=== PATIENT | male | born 1985 | race Caucasian/White ===

== ENCOUNTER 2021-12-05 21:52 | Emergency (ER) | payer OTHER, SELFPAY ==
[2021-12-05 21:53] VITALS: BP 145/90; PULSE 103; RESP 18; TEMP 38.1; O2SAT 99; BMI 39.5
--- NOTE | 2021-12-05 22:16 | EDS_ITS ---
HPI History of Present Illness Chief Complaint: Abscess Informant: patient and spouse/S.O. Narrative Narrative: Abscess under right armpit started Saturday 3 days ago. Seen at [facility] yesterday reported attempted I&D states packing was placed over there is no drainage. He was started on cefuroxime twice a day for 7 days. 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 States redness is slightly improved however swelling seems to increase. Fever in the ED. Denies cough or urinary symptoms. Denies history of diabetes. Prior similar symptoms: No PFSH PFSH Allergy/AdvReac Type Severity Reaction Status Date / Time No Known Allergies Allergy Verified 12/05/21 21:57 Social History Smoking Status: Never smoker ROS ROS ED Constitutional Constitutional ED: Denies chills, fever(s) or sweats Eyes Eyes: Denies change in vision ENT ENT ED: Denies dysphagia or sore throat Cardiovascular Cardiovascular: Denies chest pain, leg edema, palpitations or racing heartbeat Respiratory/Chest Respiratory/Chest: Denies cough, dyspnea or dyspnea on exertion Gastrointestinal Gastrointestinal: Denies abdominal pain, diarrhea, nausea or vomiting Genitourinary Genitourinary ED: Denies dysuria, hematuria or urinary frequency Musculoskeletal Musculoskeletal: Denies back pain, extremity pain or neck pain Integumentary Reports abscess; Denies rash or wounds Neurologic Neurologic: Denies headache(s), paresthesias or weakness EXAM Physical Exam Const Vital Signs: 12/05/21 21:53 Temperature 100.6 F H Temperature Source Oral Pulse Rate 103 H Respiratory Rate 18 Blood Pressure 145/90 H Blood Pressure Mean 108 Pulse Ox 99 Oxygen Delivery Method Room Air Positive well nourished and well developed General Appearance ED: well developed and NAD HEENT Reports moist mucous membranes normocephalic and atraumatic Eyes PERRL, EOMs intact bilaterally and conjunctivae normal General Eye ED: Yes normal appearance of both eyes Neck no lymphadenopathy and supple General: Negative for tenderness Chest Wall Chest: Negative for tenderness Resp normal respiratory effort and normal air movement Effort and Inspection: symmetric chest movement; Negative for respiratory distress Cardio regular rate, regular rhythm and no murmurs Peripheral Pulses: pulses 2+ throughout GI normal to inspection, nondistended, normoactive bowel sounds and non-tender Palpation: Negative for guarding or rebound tenderness present Back/Spine no CVA tenderness and no thoracic nor lumbar tenderness Extremity normal to inspection General Extremety ED: Negative for edema or tenderness General Extremity: Negative for edema Neuro oriented x3 and no sensory deficits noted Sensorium / Orientation: awake and alert Skin Skin Narrative: Right axillary: 10 x 6 cm area of induration and erythema extending 12 cm. Quarter-inch packing was noted medial superior aspect of the wound. No active drainage. MDM MDM MDM Narrative Medical decision making narrative: Patient low-grade fever in the ED. He is nontoxic. Bedside ultrasound noted cobblestoning over the indurated area. There was 1 small circular collection superior to the wound where the quarter inch packing was placed. However more swelling over the induration inferiorly. Spouse patient states erythema is improving after 2 doses of antibiotics. With the increasing concerns for swelling, discussed additional incision and drainage to relieve pressure. They agree. Performed without complications. Cruciate incision was made. With erythema improving discussed continue the current antibiotics of cefuroxime. They will use Tylenol or Motrin as needed ibuprofen given the ED. Declines any additional pain medicines. He has ibuprofen at home. He is to follow-up with his PCP in 2 days. He will keep this appointment. Return precautions. All questions answered. Procedure note: Verbal consent. Normal sterile conditions. Betadine prep of the wound, total 9 cc 1% lidocaine with epinephrine was used for local analgesia. A cruciate incision was made, there is no exudative drainage, locul ations were broken, copiously flushed with 250 mL of normal saline. Dressing placed by myself. Patient tolerated procedure well. Discharge Plan Triage Chief Complaint: Abscess ED Provider: Nickolas Mcdonald Dx/Rx/DC Orders Clinical Impression: Abscess of axilla, right, Fever Instructions: ED Abscess Incision And Drainage Primary Care Provider: Kristine Russell Referrals: Kristine Russell, [Primary Care Provider] - Keep Buddy appointment Activity Restrictions/Additional Instructions: Take and finish your antibiotics. Return if any worsening symptoms otherwise follow-up as scheduled this coming . Disposition Disposition: Home, Self Care Discharge Date/Time: 12/05/21 23:29
[2021-12-05] MEDS: Ibuprofen 600 MG Tablet PO (22:24)
[2021-12-05] MEDS: Lidocaine 1% /Epi 1:100 (20ml) 20 ML Vial INFILT (23:28)
== END 2021-12-05 23:29 | disposition home or self-care (01) ==
PROVIDERS: Emergency Provider Emergency Medicine; Visit Provider Emergency Medicine
DX: L02.411 Cutaneous abscess of right axilla (principal); R50.9 Fever, unspecified
CPT/HCPCS: 99283